=== PATIENT | male | born 1975 | race Caucasian/White ===

== ENCOUNTER 2020-02-08 12:04 | Emergency (ER) | payer SELFPAY ==
--- NOTE | 2020-02-08 12:50 | RAD REPORT ---
EXAM DESCRIPTION: CT - Head Brain Wo Cont - 02/08/2020 12:38 pm CLINICAL HISTORY: HEADACHE COMPARISON: No comparisons TECHNIQUE: Axial 5 mm thick images of the head were obtained without IV contrast. All CT scans are performed using dose optimization technique as appropriate and may include automated exposure control or mA/KV adjustment according to patient size. FINDINGS: No intracranial hemorrhage, mass, edema or shift of mid-line structures. No acute infarcti on changes seen. No abnormal extra-axial fluid collections. Ventricles are normal. Mastoid air cells and visualized portions of the paranasal sinuses are clear. No acute bony findings. IMPRESSION: Negative non-contrast CT head examination.
[2020-02-08] MEDS ORDERED: NA CHLORIDE 0.9% 1,000 ML ONE (13:13)
[2020-02-08 13:18] LABS: Absolute Lymphocytes (CBC) 1.1 K/uL (0.7-4.9); Basophils % 0.2 % (0-1.3); Hematocrit 39.9 % (39.6-49.0); Lymphocytes % 20.3 % (15.3-44.8); MPV 9.4 fL (7.6-11.3); RBC Red Blood Cell Count 3.73 M/uL (4.33-5.43)
[2020-02-08 13:22] LABS: Protime INR 0.95
--- NOTE | 2020-02-08 13:23 | RAD REPORT ---
EXAM DESCRIPTION: RAD - Chest Single View - 02/08/2020 12:41 pm CLINICAL HISTORY: PALPITATIONS COMPARISON: None TECHNIQUE: AP portable chest image was obtained 02/08/2020 12:41 pm . FINDINGS: Lungs are clear. Heart and vasculature are normal. No measurable pleural effusion and no p neumothorax. No acute bony abnormality seen. No acute aortic findings suspected. IMPRESSION: No acute cardiopulmonary process.
[2020-02-08] MEDS ORDERED: METOCLOPRAMIDE 10 MG/2mL INJ ONE (13:26)
[2020-02-08] MEDS ORDERED: NA CHLORIDE 0.9% 100 ML IV ONE (13:26)
[2020-02-08] MEDS ORDERED: DIPHENHYDRAMINE 50 MG/ML VIAL ONE (13:26)
[2020-02-08 13:36] LABS: Albumin 3.1 g/dL (3.4-5.0); Alkaline Phosphatase 170 U/L (45-117); BUN Blood Urea Nitrogen 1 mg/dL (7-18); Bicarbonate 26 mmol/L (21-32); Bilirubin Direct 0.3 mg/dL (0-0.2); Bilirubin Total 0.5 mg/dL (0.2-1.0); Glucose Level 81 mg/dL (74-106); Magnesium 2.3 mg/dL (1.8-2.4); NT PRO-BNP 53 pg/mL (<125); Potassium 3.4 mmol/L (3.5-5.1); Protein, Total 6.8 g/dL (6.4-8.2); Sodium Level 141 mmol/L (136-145); Troponin (Emerg Dept Use Only) < 0.02 ng/mL (0.0-0.045)
[2020-02-08 13:38] LABS: ALT/SGPT 584 U/L (12-78); AST/SGOT 741 U/L (15-37)
[2020-02-08 14:56] LABS: Blood Morphology Comment NOTED (NOT SEEN); Platelet Estimate ADEQ; White Blood Cell Scan OK (OK)
[2020-02-08 14:57] LABS: Anisocytosis 2+; Macrocytosis 2+
--- NOTE | 2020-02-08 15:38 | RAD REPORT ---
EXAM DESCRIPTION: CT - Abdomen Pelvis W Contrast - 02/08/2020 3:12 pm CLINICAL HISTORY: Abnormal liver enzymes COMPARISON: No comparisons TECHNIQUE: Biphasic, helical CT imaging of the abdomen and pelvis was performed following 100 ml non -ionic IV contrast. No oral contrast administered. All CT scans are performed using dose optimization technique as appropriate and may include automated exposure control or mA/KV adjustment according to patient size. FINDINGS: No suspicious findings in the lung bases. Bilateral breast implants in place. No pericardi al thickening or effusion. Liver is borderline to mild fatty infiltrated with no focal lesion. Spleen and pancreas show no acute findings. Gallbladder is partially contracted. Gallstones can be occult. No biliary tree dilatation. Renal function is symmetric and does not appear to be delayed. No pyelonephritis or acute renal paren chymal process. Cortical thinning is seen in areas of the right kidney possibly from old infectious o r inflammatory processes. Right collecting system is mildly dilated but there are no obstructing or n onobstructing calculi seen. No bladder abnormalities. No adrenal abnormalities. Uterus, ovaries and a dnexa show no suspicious findings. There are small cysts present. No dilated bowel loops or bowel wall thickening. Contrast material is present in a nondilated appendi x presumed to be from prior imaging study. Multiple appendicoliths would be possible. Active appendix process is not suspected. No free air, free fluid or inflammatory stranding. No hernia, mass or bul ky lymphadenopathy. No suspicious bony findings. IMPRESSION: As detailed above, no acute or emergent CT abdomen or pelvis finding.
--- NOTE | 2020-02-08 15:58 | EDPHYS ---
Physician Documentation [facility] Name: Jennifer Musa Age: 45 yrs Sex: Male : 1975 Arrival Date: 02/08/2020 Time: 12:06 Bed 20 Private MD: ED Physician Donny Adair HPI: 02/07 12:18 This 45 yrs old Male presents to ER via Ambulatory with complaints of High pm1 Blood Pressure, Headache. 12:18 The patient has elevated blood pressure and discovered this at home, with a home pm1 device. Onset: The symptoms/episode began/occurred 5 day(s) ago. Modifying factors: The symptoms are alleviated by. Modifying factors: The symptoms are aggravated by Nothing, The symptoms are alleviated by Nothing. Associated signs and symptoms: Pertinent negatives: chest pain, nausea, vomiting, shortness of breath. Severity of symptoms: in the emergency department the blood pressure is unchanged. The patient has not experienced similar symptoms in the past. The patient has not recently seen a physician, has an appointment scheduled, next week. Historical: - Allergies: 12:12 Aspirin; ll1 - PMHx: 12:12 hypertension-no medications; ll1 - PSHx: 12:12 meniscus/ACL repair; Hysterectomy; Hernia repair; ll1 - Immunization history:: Flu vaccine is not up to date. - Social history:: Smoking status: Patient reports the use of cigarette tobacco products, smokes one-half pack cigarettes per day, Patient/guardian denies using alcohol, street drugs. ROS: 12:18 Constitutional: Negative for fever, chills, and weight loss, Eyes: Negative for injury, pm1 pain, redness, and discharge, ENT: Negative for injury, pain, and discharge, Neck: Negative for injury, pain, and swelling. 12:18 Respiratory: Negative for shortness of breath, cough, wheezing, and pleuritic chest pain, Abdomen/GI: Negative for abdominal pain, nausea, vomiting, diarrhea, and constipation, Back: Negative for injury and pain, MS/Extremity: Negative for injury and deformity, Skin: Negative for injury, rash, and discoloration. 12:18 Cardiovascular: Positive for palpitations, Negative for chest pain, edema. 12:18 Neuro: Positive for headache, Negative for numbness, weakness. Exam: 12:18 Constitutional: This is a well developed, well nourished patient who is awake, alert, pm1 and in no acute distress. Head/Face: Normocephalic, atraumatic. Chest/axilla: Normal chest wall appearance and motion. Nontender with no deformity. No lesions are appreciated. Cardiovascular: Regular rate and rhythm with a normal S1 and S2. No gallops, murmurs, or rubs. Normal PMI, no JVD. No pulse deficits. Respiratory: Lungs have equal breath sounds bilaterally, clear to auscultation and percussion. No rales, rhonchi or wheezes noted. No increased work of breathing, no retractions or nasal flaring. Abdomen/GI: Soft, non-tender, with normal bowel sounds. No distension or tympany. No guarding or rebound. No evidence of tenderness throughout. Back: No spinal tenderness. No costovertebral tenderness. Full range of motion. Skin: Warm, dry with normal turgor. Normal color with no rashes, no lesions, and no evidence of cellulitis. MS/ Extremity: Pulses equal, no cyanosis. Neurovascular intact. Full, normal range of motion. 12:18 Neuro: Exam negative for acute changes, Orientation: is normal, Mentation: is normal, Motor: is normal, moves all fours. Vital Signs: 12:13 BP 164 / 103; Pulse 102; Resp 18; Temp 97.5; Pulse Ox 97% ; Pain 7/10; ll1 13:22 BP 155 / 93; Pulse 87; Resp 14; Pulse Ox 95% on R/A; aj1 14:31 BP 157 / 103; Pulse 91; Resp 18; Pulse Ox 99% on R/A; aj1 15:33 BP 148 / 99; Pulse 93; Resp 18; Pulse Ox 97% on R/A; aj1 MDM: 12:14 Patient medically screened. pm1 14:16 ED course: Patient would like CT scan of abdomen due to elevated liver enzymes instead pm1 of follow up with PCP. 14:16 ED course: Patient reports history of alcoholism. pm1 15:57 Data reviewed: vital signs. Data interpreted: Pulse oximetry: on room air is 97 %. pm1 Interpretation: normal. Counseling: I had a detailed discussion with the patient and/or guardian regarding: the historical points, exam findings, and any diagnostic results supporting the discharge/admit diagnosis, lab results, radiology results, the need for outpatient follow up, a stripper black and white, to return to the emergency department if symptoms worsen or persist or if there are any questions or concerns that arise at home. 02/07 12:18 Order name: Basic Metabolic Panel; Complete Time: 13:55 pm1 02/07 12:18 Order name: CBC with Diff; Complete Time: 15:02 pm1 02/07 12:18 Order name: LFT's; Complete Time: 13:55 pm1 02/07 12:18 Order name: Magnesium; Complete Time: 13:55 pm1 02/07 12:18 Order name: NT PRO-BNP; Complete Time: 13:55 pm1 02/07 12:18 Order name: PT-INR; Complete Time: 13:55 pm1 02/07 12:18 Order name: CT Head Brain wo Cont; Complete Time: 12:52 pm1 02/07 12:18 Order name: Troponin (emerg Dept Use Only); Complete Time: 13:55 pm1 02/07 12:18 Order name: XRAY Chest (1 view); Complete Time: 13:24 pm1 02/07 14:16 Order name: CT Abd/Pelvis - IV Contrast Only; Complete Time: 15:56 pm1 02/07 14:24 Order name: CBC Smear Scan; Complete Time: 15:02 EDMS 02/07 12:18 Order name: EKG; Complete Time: 12:19 pm1 02/07 12:18 Order name: Cardiac monitoring; Complete Time: 12:55 pm1 02/07 12:18 Order name: EKG - Nurse/Tech; Complete Time: 12:55 pm1 02/07 12:18 Order name: IV Saline Lock; Complete Time: 13:04 pm02/07 12:18 Order name: Labs collected and sent; Complete Time: 13:04 pm02/07 12:18 Order name: O2 Per Protocol; Complete Time: 12:55 pm1 02/07 12:18 Order name: O2 Sat Monitoring; Complete Time: 12:55 pm1 Administered Medications: 13:03 Drug: NS 0.9% 1000 ml Route: IV; Rate: 1000 ml; Site: right antecubital; aj1 16:19 Follow up: IV Status: Completed infusion; IV Intake: 1000ml aj 13:21 Drug: Reglan 10 mg Route: IVP; Site: right antecubital; aj1 16:19 Follow up: Response: No adverse reaction aj1 13:22 Drug: Benadryl 25 mg Route: IVP; Site: right antecubital; aj1 16:19 Follow up: Response: No adverse reaction aj1 Disposition: 02/08/20 15:58 Discharged to Home. Impression: Headache, Essential (primary) hypertension. - Condition is Stable. - Discharge Instructions: General Headache Without Cause, Hypertension, How to Take Your Blood Pressure, [id number], DASH Eating Plan, Managing Your Hypertension. - Prescriptions for Lisinopril 10 mg Oral Tablet - take 1 tablet by ORAL route once daily; 20 tablet. - Medication Reconciliation Form, Thank You Letter, Antibiotic Education, Prescription Opioid Use form. - Follow up: Emergency Department; When: As needed; Reason: Worsening of condition. Follow up: Private Physician; When: 2 - 3 days; Reason: Recheck today's complaints, Continuance of care, Re-evaluation by your physician. - Problem is new. - Symptoms have improved. Addendum: 02/10/2020 10:50 Co-signature as Attending Physician, Donny Adair MD I agree with the assessment and c gambino plan of care. Signatures: Dispatcher [employer] EDRadha Gray RN RN aj1 Donny Adair MD MD cha Marinas, Patrick, LEE [employer]GE[employer] pm1 Denise Smyth RN RN ll1 Corrections: (The following items were deleted from the chart) 02/07 16:19 15:58 02/08/2020 15:58 Discharged to Home. Impression: Headache; Essential (primary) aj1 hypertension. Condition is Stable. Forms are Medication Reconciliation Form, Thank You Letter, Antibiotic Education, Prescription Opioid Use. Follow up: Emergency Department; When: As needed; Reason: Worsening of condition. Follow up: Private Physician; When: 2 - 3 days; Reason: Recheck today's complaints, Continuance of care, Re-evaluation by your physician. Problem is new. Symptoms have improved. pm1
--- NOTE | 2020-02-08 15:58 | ER ---
Nurse's Notes [facility] Name: Jennifer Musa Age: 45 yrs Sex: Male : 1975 Arrival Date: 02/08/2020 Time: 12:06 Bed 20 Private MD: Diagnosis: Headache;Essential (primary) hypertension Presentation: 02/07 12:13 Chief complaint: Patient states: [place] for 5 days with N/V. Bp elevated at home, 171/122. ll1 No fever or cough. Coronavirus screen: Client denies travel out of the [place] in the last 14 days. At this time, the client does not indicate any symptoms associated with coronavirus-19. Ebola Screen: Patient denies travel to an Ebola-affected area in the 21 days before illness onset. Initial Sepsis Screen: Does the patient meet any 2 criteria? HR > 90 bpm. Risk Assessment: Do you want to hurt yourself or someone else? Patient reports no desire to harm self or others. Onset of symptoms was February 04, 2020. 12:13 Method Of Arrival: Ambulatory ll1 12:13 Acuity: DAI 3 ll1 Triage Assessment: 12:59 General: Appears in no apparent distress. uncomfortable. Pain: Also complains of no aj1 other associated symptoms. Historical: - Allergies: 12:12 Aspirin; ll1 - PMHx: 12:12 hypertension-no medications; ll1 - PSHx: 12:12 meniscus/ACL repair; Hysterectomy; Hernia repair; ll1 - Immunization history:: Flu vaccine is not up to date. - Social history:: Smoking status: Patient reports the use of cigarette tobacco products, smokes one-half pack cigarettes per day, Patient/guardian denies using alcohol, street drugs. Screenin:56 Abuse screen: Denies threats or abuse. Denies injuries from another. Nutritional aj1 screening: No deficits noted. Tuberculosis screening: No symptoms or risk factors identified. 16:18 Fall Risk None identified. aj1 Assessment: 12:34 Reassessment: Patient transported to [place] via wheelchair. aj1 12:56 General: Appears in no apparent distress. uncomfortable, Behavior is calm, cooperative, aj1 appropriate for age. Pain: Complains of pain in forehead, right eye, right methodist and right base of the skull Pain does not radiate. Pain currently is 7 out of 10 on a pain scale. Quality of pain is described as aching, Pain began 5 days ago Is continuous. Neuro: Level of Consciousness is awake, alert, obeys commands, Oriented to person, place, time, situation, Plastic Welder are equal bilaterally Moves all extremities. Full function Speech is normal, Facial symmetry appears normal, Reports headache. Cardiovascular: Reports palpitations, Denies chest pain, Heart tones S1 S2 present Patient's skin is warm and dry. Rhythm is sinus rhythm Chest pain is denied. Respiratory: Airway is patent Respiratory effort is even, unlabored, Respiratory pattern is regular, symmetrical, Denies cough, shortness of breath. GI: No signs and/or symptoms were reported involving the gastrointestinal system. : No signs and/or symptoms were reported regarding the genitourinary system. EENT: No signs and/or symptoms were reported regarding the EENT system. Denies nasal congestion, nasal discharge. Derm: No signs and/or symptoms reported regarding the dermatologic system. Skin is pink, warm \T\ dry. normal. Musculoskeletal: No signs and/or symptoms reported regarding the musculoskeletal system. Circulation, motion, and sensation intact. 14:05 Reassessment: Jacques Tejeda NP at bedside. aj1 14:26 Reassessment: Patient appears in no apparent distress at this time. No changes from aj1 previously documented assessment. Patient and/or family updated on plan of care and expected duration. Pain level reassessed. Patient is alert, oriented x 3, equal unlabored respirations, skin warm/dry/pink. 15:30 Reassessment: Patient appears in no apparent distress at this time. No changes from aj1 previously documented assessment. Patient and/or family updated on plan of care and expected duration. Pain level reassessed. Patient is alert, oriented x 3, equal unlabored respirations, skin warm/dry/pink. 16:18 Reassessment: Patient appears in no apparent distress at this time. No changes from aj1 previously documented assessment. Patient and/or family updated on plan of care and expected duration. Pain level reassessed. Patient is alert, oriented x 3, equal unlabored respirations, skin warm/dry/pink. Vital Signs: 12:13 BP 164 / 103; Pulse 102; Resp 18; Temp 97.5; Pulse Ox 97% ; Pain 7/10; ll1 13:22 BP 155 / 93; Pulse 87; Resp 14; Pulse Ox 95% on R/A; aj1 14:31 BP 157 / 103; Pulse 91; Resp 18; Pulse Ox 99% on R/A; aj1 15:33 BP 148 / 99; Pulse 93; Resp 18; Pulse Ox 97% on R/A; aj1 ED Course: 12:06 Patient arrived in ED. mr 12:13 Arm band placed on Patient placed in an exam room, on a stretcher. ll1 12:14 Triage completed. ll1 12:14 Maco Tejeda, LEE is PHCP. pm1 12:14 Donny Adair MD is Attending Physician. pm1 12:34 Radha Urban, SHIRIN is Primary Nurse. aj1 12:38 CT Head Brain wo Cont In Process Unspecified. EDMS 12:41 XRAY Chest (1 view) In Process Unspecified. EDMS 12:56 Patient has correct armband on for positive identification. Bed in low position. Call aj1 light in reach. Side rails up X 1. 12:56 No provider procedures requiring assistance completed. aj1 13:00 Inserted saline lock: 20 gauge in right antecubital area, using aseptic technique. aj1 Blood collected. 15:12 CT Abd/Pelvis - IV Contrast Only In Process Unspecified. EDMS 16:18 IV discontinued, intact, bleeding controlled, No redness/swelling at site. Pressure aj1 dressing applied. Administered Medications: 13:03 Drug: NS 0.9% 1000 ml Route: IV; Rate: 1000 ml; Site: right antecubital; aj1 16:19 Follow up: IV Status: Completed infusion; IV Intake: 1000ml aj1 13:21 Drug: Reglan 10 mg Route: IVP; Site: right antecubital; aj1 16:19 Follow up: Response: No adverse reaction aj1 13:22 Drug: Benadryl 25 mg Route: IVP; Site: right antecubital; aj1 16:19 Follow up: Response: No adverse reaction aj1 Intake: 16:19 IV: 1000ml; Total: 1000ml. aj1 Outcome: 15:58 Discharge ordered by MD. pm1 16:18 Discharged to home ambulatory. aj1 16:18 Condition: good 16:18 Discharge instructions given to patient, Instructed on discharge instructions, follow up and referral plans. medication usage, Demonstrated understanding of instructions, follow-up care, medications, Prescriptions given X 1. 16:19 Patient left the ED. aj1 Signatures: Dispatcher [employer] EDRadha Gray RN RN aj1 Sara Varela mr IleanaMaco, NORMALIZER NORMALIZER pm1 Denise Smyth RN RN ll1 Corrections: (The following items were deleted from the chart) 12:59 12:56 GI: No signs and/or symptoms were reported involving the gastrointestinal system. aj1 aj1
[2020-02-08 17:14] VITALS: TEMP 97.5
[2020-02-08 17:17] VITALS: BP 148/99; O2SAT 97
--- NOTE | 2020-02-09 09:45 | EKG ---
Test Date: 2020-02-08 Test Time: 12:49:51 Public Aid Eligibility Assistant: RENAE MEASUREMENT RESULTS: Intervals: Rate: 87 MA: 168 QRSD: 82 QT: 380 QTc: 457 [place]: P: 68 MA: 168 QRS: 89 T: 48 INTERPRETIVE STATEMENTS: Normal sinus rhythm Normal ECG No previous ECG available for comparison Electronically Signed On 02-09-20 09:44:17 CDT by Sage Andrews
== END 2020-02-08 16:19 | disposition home or self-care (01) ==
LOC: ER 12:04
DX: I10 Essential (primary) hypertension (principal); F10.20 Alcohol dependence, uncomplicated; F17.210 Nicotine dependence, cigarettes, uncomplicated; Z88.6 Allergy status to analgesic agent
CPT/HCPCS: 36415; 70450; 71045; 74177; 80048; 80076; 83735; 83880; 84484; 85025; 85610; 93005; 96361; 96374; 96375; 99284; J1200; J2765; J7030; Q9967

== ENCOUNTER 2022-09-30 08:56 | Emergency (ER) | payer SELFPAY ==
--- OUTSIDE RECORDS SUMMARY | 2022-09-30 09:00 | XMS REPORT | Continuity of Care Document ---
:1975 Author Organization [facility] t Address [address] [place] [address]. [address] [place] [address] Care Team Providers Name Role Phone Lilly RUIZ Araceli Primary Care Physician [phone] DARIEN NOVA Attending Clinician Unavailable FABIAN HOOD Attending Clinician Unavailable ELIOT SOLOMON Attending Clinician Unavailable ELIOT SOLOMON Admitting Clinician Unavailable Problems This patient has no known problems. Allergies, Adverse Reactions, Alerts Allergy Allergy Status Severity Reaction(s) Onset Inactive Treating Comm ents Source Name Type Date Date Clinician Mesna - Propensi Active Intraven ty to 6-13 ous adverse 00:00: reaction 00 to drug AMOXICIL DRUG Active Rash 2019- Univers NATHEN-POT 2-21 ity of CLAVULAN 00:00: [place] [facility] 00 [facility] Aspirin Propensi Active 2019-0 ty to 8-12 adverse 00:00: reaction 00 to drug ASPIRIN DRUG Active Other-Cmnt 2018-0 Unive rs INGREDI 7-20 ity of 00:00: [address] Medications Ordered Filled Start Stop Current Ordering Indication Dosage Frequency Signature Comments Components Source Medication Medication Date Date Medication? Clinician (SIG) Name Name Dose 2021- No Unknown 02-16 00:00: 00 Dose 2021-0 No Unknown 02-16 00:00: 00 Dose 2021-0 No Unknown 02-16 00:00: 00 Dose 2021-0 No Unknown 11-25 00:00: 00 Dose 2021-0 No Unknown 11-25 00:00: 00 Dose 2021-0 No Unknown 11-25 00:00: 00 Dose 2021-0 No Unknown 11-25 00:00: 00 Dose 2022-0 No Unknown 6 00:00: 00 Dose 2022-0 No Unknown 11-25 00:00: 00 Dose 2022-0 No Unknown 11-25 00:00: 00 Dose 2022-0 No Unknown 11-25 00:00: 00 Dose 2022-0 No Unknown 11-25 00:00: 00 Dose 2022-0 No Unknown 11-25 00:00: 00 Dose 2022-0 No Unknown 11-25 00:00: 00 Dose 2022-0 No Unknown 11-25 00:00: 00 amoxicillin 2022-0 No 1mg 875 6-13 mg-potassiu 00:00: m 00 clavulanate 125 mg tablet Dose 2022-0 No Unknown 11-08 00:00: 00 Dose 2022-0 No Unknown 11-08 00:00: 00 amoxicillin 2022-0 No 1mg 875 6-13 mg-potassiu 00:00: m 00 clavulanate 125 mg tablet Dose 2022-0 No Unknown 11-08 00:00: 00 Dose 2022-0 No Unknown 11-08 00:00: 00 amoxicillin 2022-0 No 1mg 875 6-13 mg-potassiu 00:00: m 00 clavulanate 125 mg tablet Dose 2022-0 No Unknown 6 00:00: 00 Dose 2022-0 No Unknown 6 00:00: 00 amoxicillin 2022-0 No 1mg 875 6-13 mg-potassiu 00:00: m 00 clavulanate 125 mg tablet ibuprofen 2022-0 No 1mg 800 mg 6-13 tablet 00:00: 00 Dose 2022-0 No Unknown 6 00:00: 00 triamcinolo 2020-1 No 1% ne 1-29 acetonide 00:00: 0.1 % 00 topical cream hydroxyzine 2020-1 No 1mg HCl 25 mg 1-29 tablet 00:00: 00 triamcinolo 2020-1 No 1% ne 1-29 acetonide 00:00: 0.1 % 00 topical cream hydroxyzine 2020-1 No 1mg HCl 25 mg 1-29 tablet 00:00: 00 triamcinolo 2020-1 No 1% ne 1-29 acetonide 00:00: 0.1 % 00 topical cream triamcinolo 2020-1 No 1% ne 1-29 acetonide 00:00: 0.1 % 00 topical cream hydroxyzine 2020-1 No 1mg HCl 25 mg 1-29 tablet 00:00: 00 hydroxyzine 2020-1 No 1mg HCl 25 mg 1-29 tablet 00:00: 00 triamcinolo 2020-1 No 1% ne 1-27 acetonide 00:00: 0.1 % 00 topical cream hydroxyzine 2020-1 No 1mg HCl 25 mg 1-27 tablet 00:00: 00 triamcinolo 2020-1 No 1% ne 1-27 acetonide 00:00: 0.1 % 00 topical cream hydroxyzine 2020-1 No 1mg HCl 25 mg 1-27 tablet 00:00: 00 triamcinolo 2020-1 No 1% ne 1-27 acetonide 00:00: 0.1 % 00 topical cream hydroxyzine 2020-1 No 1mg HCl 25 mg 1-27 tablet 00:00: 00 triamcinolo 2020-1 No 1% ne 1-27 acetonide 00:00: 0.1 % 00 topical cream hydroxyzine 2020-1 No 1mg HCl 25 mg 1-27 tablet 00:00: 00 triamcinolo 1-0 No 1% ne 9-09 acetonide 00:00: 0.1 % 00 topical ointment triamcinolo 1-0 No 1% ne 9-09 acetonide 00:00: 0.1 % 00 topical ointment triamcinolo 1-0 No 1% ne 9-09 acetonide 00:00: 0.1 % 00 topical ointment triamcinolo 2021-0 No 1% ne 9-09 acetonide 00:00: 0.1 % 00 topical ointment permethrin 2021-0 No 1% 5 % topical 8-23 cream 00:00: 00 permethrin 2021-0 No 1% 5 % topical 8-23 cream 00:00: 00 permethrin 2021-0 No 1% 5 % topical 8-23 cream 00:00: 00 permethrin 2021-0 No 1% 5 % topical 8-23 cream 00:00: 00 permethrin 2021-0 No 1% 5 % topical 8-23 cream 00:00: 00 permethrin 2021-0 No 1% 5 % topical 8-23 cream 00:00: 00 permethrin 2021-0 No 1% 5 % topical 8-23 cream 00:00: 00 permethrin 2021-0 No 1% 5 % topical 8-23 cream 00:00: 00 permethrin 2019-1 No 1% 5 % topical 2-03 cream 00:00: 00 permethrin 2020-1 No 1% 5 % topical 2-03 cream 00:00: 00 permethrin 2020-1 No 1% 5 % topical 2-03 cream 00:00: 00 permethrin 2019-1 No 1% 5 % topical 2-03 cream 00:00: 00 chlordiazep 2020-1 No 1mg oxide 25 mg 2-02 capsule 00:00: 00 chlordiazep 2020-1 No 1mg oxide 25 mg 2-02 capsule 00:00: 00 chlordiazep 2019-1 No 1mg oxide 25 mg 2-02 capsule 00:00: 00 chlordiazep 2020-1 No 1mg oxide 25 mg 2-02 capsule 00:00: 00 betamethaso 2020-1 No 1% ne valerate 1-12 0.1 % 00:00: topical 00 cream Zofran 4 mg 2019-1 No 1mg tablet 1-12 00:00: 00 betamethaso 2020-1 No 1% ne valerate 1-12 0.1 % 00:00: topical 00 cream Zofran 4 mg 2019-1 No 1mg tablet 1-12 00:00: 00 betamethaso 2020-1 No 1% ne valerate 1-12 0.1 % 00:00: topical 00 cream Zofran 4 mg 2019-1 No 1mg tablet 1-12 00:00: 00 betamethaso 2020-1 No 1% ne valerate 1-12 0.1 % 00:00: topical 00 cream Zofran 4 mg 2020-1 No 1mg tablet -12 00:00: 00 lisinopril 2020-0 No 1mg 10 mg 9-17 tablet 00:00: 00 lisinopril 2020-0 No 1mg 10 mg 9-17 tablet 00:00: 00 lisinopril 2020-0 No 1mg 10 mg 9-17 tablet 00:00: 00 lisinopril 2020-0 No 1mg 10 mg 9-17 tablet 00:00: 00 disulfiram 2020-0 No 1mg 250 mg 9-01 tablet 00:00: 00 disulfiram 2020-0 No 1mg 250 mg 9-01 tablet 00:00: 00 disulfiram 2020-0 No 1mg 250 mg 9-01 tablet 00:00: 00 disulfiram 2020-0 No 1mg 250 mg 9-01 tablet 00:00: 00 betamethaso 2020-0 No 1% ne valerate 8-19 0.1 % 00:00: topical 00 cream triamcinolo 2020-0 No 1% ne 8-19 acetonide 00:00: 0.1 % 00 topical ointment prednisone 2020-0 No 1mg 20 mg 8-19 tablet 00:00: 00 betamethaso 2020-0 No 1% ne valerate 8-19 0.1 % 00:00: topical 00 cream disulfiram 2020-0 No mg 500 mg 8-19 tablet 00:00: 00 triamcinolo 2020-0 No 1% ne 8-19 acetonide 00:00: 0.1 % 00 topical ointment prednisone 2020-0 No 1mg 20 mg 8-19 tablet 00:00: 00 disulfiram 2020-0 No mg 500 mg 8-19 tablet 00:00: 00 betamethaso 2020-0 No 1% ne valerate 8-19 0.1 % 00:00: topical 00 cream triamcinolo 2020-0 No 1% ne 8-19 acetonide 00:00: 0.1 % 00 topical ointment prednisone 2020-0 No 1mg 20 mg 8-19 tablet 00:00: 00 disulfiram 2020-0 No mg 500 mg 8-19 tablet 00:00: 00 betamethaso 2020-0 No 1% ne valerate 8-19 0.1 % 00:00: topical 00 cream triamcinolo 2020-0 No 1% ne 8-19 acetonide 00:00: 0.1 % 00 topical ointment prednisone 2020-0 No 1mg 20 mg 8-19 tablet 00:00: 00 disulfiram 2020-0 No mg 500 mg 8-19 tablet 00:00: 00 nystatin-tr 2020-0 No 1unit/g iamcinolone 8-12 -% 100,000 00:00: unit/g-0.1 00 % topical cream citalopram 2020-0 No 1mg 20 mg 8-12 tablet 00:00: 00 citalopram 2020-0 No 1mg 20 mg 8-12 tablet 00:00: 00 hydroxyzine 2020-0 No 1mg HCl 50 mg 8-12 tablet 00:00: 00 hydroxyzine 2020-0 No 1mg HCl 50 mg 8-12 tablet 00:00: 00 nystatin-tr 2020-0 No 1unit/g iamcinolone 8-12 -% 100,000 00:00: unit/g-0.1 00 % topical cream citalopram 2020-0 No 1mg 20 mg 8-12 tablet 00:00: 00 citalopram 2020-0 No 1mg 20 mg 8-12 tablet 00:00: 00 hydroxyzine 2020-0 No 1mg HCl 50 mg 8-12 tablet 00:00: 00 hydroxyzine 2020-0 No 1mg HCl 50 mg 8-12 tablet 00:00: 00 nystatin-tr 2020-0 No 1unit/g iamcinolone 8-12 -% 100,000 00:00: unit/g-0.1 00 % topical cream citalopram 2020-0 No 1mg 20 mg 8-12 tablet 00:00: 00 citalopram 2020-0 No 1mg 20 mg 8-12 tablet 00:00: 00 hydroxyzine 2020-0 No 1mg HCl 50 mg 8-12 tablet 00:00: 00 hydroxyzine 2020-0 No 1mg HCl 50 mg 8-12 tablet 00:00: 00 nystatin-tr 2020-0 No 1unit/g iamcinolone 8-12 -% 100,000 00:00: unit/g-0.1 00 % topical cream citalopram 2020-0 No 1mg 20 mg 8-12 tablet 00:00: 00 citalopram 2020-0 No 1mg 20 mg 8-12 tablet 00:00: 00 hydroxyzine 2020-0 No 1mg HCl 50 mg 8-12 tablet 00:00: 00 hydroxyzine 2020-0 No 1mg HCl 50 mg 8-12 tablet 00:00: 00 Immunizations Ordered Immunization Filled Immunization Date Status Commen ts Source Name Name Tdap 2021-04-24 Completed 00:00:00 Tdap 2021-04-24 Completed 00:00:00 Tdap 2021-04-24 Completed 00:00:00 Tdap 2021-04-24 Completed 00:00:00 Vital Signs Vital Name Observation Time Observation Value Comments Source BP Systolic 2022-03-24 09:12:00 138 mm[Hg] BP Diastolic 2022-03-24 09:12:00 92 mm[Hg] Weight Measured 2022-03-24 09:12:00 149.80 pounds Height Measured 2022-03-24 09:12:00 63.00 inches Body Temperature 2022-03-24 09:12:00 98.60 degrees Heart Rate 2022-03-24 09:12:00 104.00 /min Respiratory Rate 2022-03-24 09:12:00 18.00 /min BP Systolic 2022-02-28 11:29:00 146 mm[Hg] BP Diastolic 2022-02-28 11:29:00 104 mm[Hg] Weight Measured 2022-02-28 11:29:00 150.40 pounds Height Measured 2022-02-28 11:29:00 63.00 inches Body Temperature 2022-02-28 11:29:00 98.10 degrees Heart Rate 2022-02-28 11:29:00 115.00 /min Respiratory Rate 2022-02-28 11:29:00 18.00 /min BP Systolic 2021-11-25 15:04:00 159 mm[Hg] BP Diastolic 2021-11-25 15:04:00 106 mm[Hg] Weight Measured 2021-11-25 15:04:00 147.00 pounds Height Measured 2021-11-25 15:04:00 63.00 inches Body Temperature 2021-11-25 15:04:00 97.90 degrees Heart Rate 2021-11-25 15:04:00 104.00 /min Respiratory Rate 2021-11-25 15:04:00 16.00 /min BP Systolic 2021-11-08 13:53:00 142 mm[Hg] BP Diastolic 2021-11-08 13:53:00 99 mm[Hg] Weight Measured 2021-11-08 13:53:00 144.60 pounds Height Measured 2021-11-08 13:53:00 63.00 inches Body Temperature 2021-11-08 13:53:00 97.80 degrees Heart Rate 2021-11-08 13:53:00 104.00 /min Respiratory Rate 2021-11-08 13:53:00 BP Systolic 2021-05-11 10:47:00 140 mm[Hg] BP Diastolic 2021-05-11 10:47:00 96 mm[Hg] Weight Measured 2021-05-11 10:47:00 142.00 pounds Height Measured 2021-05-11 10:47:00 63.00 inches Body Temperature 2021-05-11 10:47:00 97.40 degrees Heart Rate 2021-05-11 10:47:00 106.00 /min Respiratory Rate 2021-05-11 10:47:00 16.00 /min BP Systolic 2021-04-24 09:47:00 138 mm[Hg] BP Diastolic 2021-04-24 09:47:00 91 mm[Hg] Weight Measured 2021-04-24 09:47:00 146.80 pounds Height Measured 2021-04-24 09:47:00 64.00 inches Body Temperature 2021-04-24 09:47:00 98.30 degrees Heart Rate 2021-04-24 09:47:00 100.00 /min Respiratory Rate 2021-04-24 09:47:00 BP Systolic 2021-01-18 11:10:00 131 mm[Hg] BP Diastolic 2021-01-18 11:10:00 89 mm[Hg] Weight Measured 2021-01-18 11:10:00 144.40 pounds Height Measured 2021-01-18 11:10:00 64.00 inches Body Temperature 2021-01-18 11:10:00 98.40 degrees Heart Rate 2021-01-18 11:10:00 113.00 /min Respiratory Rate 2021-01-18 11:10:00 BP Systolic 2020-04-29 14:15:00 127 mm[Hg] BP Diastolic 2020-04-29 14:15:00 95 mm[Hg] Weight Measured 2020-04-29 14:15:00 Height Measured 2020-04-29 14:15:00 Body Temperature 2020-04-29 14:15:00 97.30 degrees Heart Rate 2020-04-29 14:15:00 112.00 /min Respiratory Rate 2020-04-29 14:15:00 16.00 /min BP Systolic 2020-04-29 12:51:00 BP Diastolic 2020-04-29 12:51:00 Weight Measured 2020-04-29 12:51:00 145.00 pounds Height Measured 2020-04-29 12:51:00 64.00 inches Body Temperature 2020-04-29 12:51:00 97.30 degrees Heart Rate 2020-04-29 12:51:00 Respiratory Rate 2020-04-29 12:51:00 BP Systolic 2020-04-09 11:25:00 103 mm[Hg] BP Diastolic 2020-04-09 11:25:00 69 mm[Hg] Weight Measured 2020-04-09 11:25:00 149.80 pounds Height Measured 2020-04-09 11:25:00 63.00 inches Body Temperature 2020-04-09 11:25:00 98.60 degrees Heart Rate 2020-04-09 11:25:00 103.00 /min Respiratory Rate 2020-04-09 11:25:00 16.00 /min BP Systolic 2020-02-13 17:21:00 128 mm[Hg] BP Diastolic 2020-02-13 17:21:00 85 mm[Hg] Weight Measured 2020-02-13 17:21:00 153.00 pounds Height Measured 2020-02-13 17:21:00 63.00 inches Body Temperature 2020-02-13 17:21:00 97.80 degrees Heart Rate 2020-02-13 17:21:00 111.00 /min Respiratory Rate 2020-02-13 17:21:00 17.00 /min BP Diastolic 2020-02-04 09:24:00 133 mm[Hg] Weight Measured 2020-02-04 09:24:00 Height Measured 2020-02-04 09:24:00 Body Temperature 2020-02-04 09:24:00 Heart Rate 2020-02-04 09:24:00 Respiratory Rate 2020-02-04 09:24:00 BP Systolic 2020-02-04 09:24:00 182 mm[Hg] Procedures This patient has no known procedures. Plan of Care Planned Activity Planned Date Details Comments Source Goal Plan of Care Note [code = 65351-9] Goal Plan of Care Note [code = 63449-5] Goal Plan of Care Note [code = 54769-8] Goal Plan of Care Note [code = 24483-3] Goal Plan of Care Note [code = 56819-9] Goal Plan of Care Note [code = 76906-3] Goal Plan of Care Note [code = 22927-1] Goal Plan of Care Note [code = 53870-7] Goal Plan of Care Note [code = 92812-9] Goal Plan of Care Note [code = 91510-7] Goal Plan of Care Note [code = 15696-7] Goal Plan of Care Note [code = 26406-5] Goal Plan of Care Note [code = 86117-4] Goal Plan of Care Note [code = 52700-4] Goal Plan of Care Note [code = 00850-0] Goal Plan of Care Note [code = 43095-7] Goal Plan of Care Note [code = 61712-9] Goal Plan of Care Note [code = 55205-0] Goal Plan of Care Note [code = 98364-7] Goal Plan of Care Note [code = 70882-3] Goal Plan of Care Note [code = 67331-6] Goal Plan of Care Note [code = 25969-4] Goal Plan of Care Note [code = 49788-4] Goal Plan of Care Note [code = 18781-0] Goal Plan of Care Note [code = 12361-1] Goal Plan of Care Note [code = 75335-4] Goal Plan of Care Note [code = 42826-5] Goal Plan of Care Note [code = 68882-7] Goal Plan of Care Note [code = 01329-3] Goal Plan of Care Note [code = 87038-4] Goal Plan of Care Note [code = 14220-2] Goal Plan of Care Note [code = 63804-1] Goal Plan of Care Note [code = 71134-4] Goal Plan of Care Note [code = 84470-4] Goal Plan of Care Note [code = 68966-4] Goal Plan of Care Note [code = 49324-9] Goal Plan of Care Note [code = 28944-4] Goal Plan of Care Note [code = 54398-6] Goal Plan of Care Note [code = 23659-8] Goal Plan of Care Note [code = 72920-9] Goal Plan of Care Note [code = 87584-0] Goal Plan of Care Note [code = 19643-0] Goal Plan of Care Note [code = 59262-2] Goal Plan of Care Note [code = 13725-9] Goal Plan of Care Note [code = 16416-8] Goal Plan of Care Note [code = 95994-2] Goal Plan of Care Note [code = 27248-1] Goal Plan of Care Note [code = 21700-1] Goal Plan of Care Note [code = 90415-7] Goal Plan of Care Note [code = 68974-0] Goal Plan of Care Note [code = 94704-6] Goal Plan of Care Note [code = 04286-5] Goal Plan of Care Note [code = 54127-6] Goal Plan of Care Note [code = 87658-0] Goal Plan of Care Note [code = 60964-9] Goal Plan of Care Note [code = 91076-7] Goal Plan of Care Note [code = 22126-6] Goal Plan of Care Note [code = 55417-1] Goal Plan of Care Note [code = 28580-8] Goal Plan of Care Note [code = 89452-0] Goal Plan of Care Note [code = 51681-6] Goal Plan of Care Note [code = 26110-0] Goal Plan of Care Note [code = 11997-7] Goal Plan of Care Note [code = 57471-8] Goal Plan of Care Note [code = 15225-5] Goal Plan of Care Note [code = 99298-0] Goal Plan of Care Note [code = 44649-0] Encounters Start End Encounter Admission Attending Care Care Encounter Source Date/Time Date/Time Type Type Clinicians Facility Department ID 2022-04-04 2022-04-04 Outpatient [facility] [id number] Vinny 13:26:14 13:26:14 1107 F Jose 2022-03-24 2022-03-24 Outpatient [facility] [id number] Vinny 09:07:52 09:07:52 1027 F Jose 2022-03-24 2022-03-24 Outpatient [id number] 00:00:00 00:00:00 Visit [id number]-g -v77u-si8 60f-fe91a8 [id number] 39cf4c 2022-03-04 2022-03-04 Outpatient [id number] 00:00:00 00:00:00 Visit [id number] [id number]-b -o047-3bd [id number] 2022-02-28 2022-02-28 Outpatient SFA SFA [id number] Vinny 11:14:39 11:14:39 1003 F Jose 2022-02-28 2022-02-28 Outpatient [id number] 00:00:00 00:00:00 Visit [id number]-4957-a -i057-o3s 440-[id number] [id number] f498c5 2021-11-25 2021-11-25 Outpatient [id number] 00:00:00 00:00:00 Visit [id number] [id number]-[id number] -e02k-0m3 [id number] 9531-01-05 2020-06-02 [facility] [id number] [facility] 14:15:00 14:15:00 [facility] 2020-05-18 2020-05-18 Outpatient [facility] [id number] Univers 11:30:00 11:30:00 FABIAN [facility] 2020-05-12 2020-05-12 [facility] [id number] Univers 15:00:00 15:00:00 [facility] 2020-05-04 2020-05-06 Inpatient X [facility] [id number] Univers 21:07:00 15:17:00 ELIOT [facility] Results Test Description Test Time Test Comments Results Result Comments Source COMPREHENSIVE METABOLIC PANEL 2020-04-10 00:00:00 Test Item Value Reference Range Interpretation Comme nts GLUCOSE (test code = 2217) 79 MG/DL BUN (test code = 2208) 6 MG/DL CREATININE (test code = 2214) 0.57 MG/DL eGFR AMER. (test code = 31001) 128 ML/MIN/1.73 eGFR NON- AMER. (test code = 99346) 110 ML/MIN/1.73 CALC BUN/CREAT (test code = 2235) 11 RATIO SODIUM (test code = 2231) 139 MEQ/L POTASSIUM (test code = 2228) 5.2 MEQ/L CHLORIDE (test code = 2215) 96 MEQ/L CARBON DIOXIDE (test code = 2206) 23 MEQ/L CALCIUM (test code = 2209) 9.4 MG/DL PROTEIN, TOTAL (test code = 2229) 8.0 G/DL ALBUMIN (test code = 2201) 5.1 G/DL CALC GLOBULIN (test code = 2240) 2.9 G/DL CALC A/G RATIO (test code = 2234) 1.8 RATIO BILIRUBIN, TOTAL (test code = 2207) 0.5 MG/DL ALKALINE PHOSPHATASE (test code = 2204) 75 U/L AST (test code = 2218) 180 U/L ALT (test code = 2219) 60 U/L COMPREHENSIVE METABOLIC [id number] 00:00:00 Test Item Value Reference Range Interpretation Comments GLUCOSE (test code = 2217) 79 MG/DL BUN (test code = 2208) 6 MG/DL CREATININE (test code = 2214) 0.57 MG/DL eGFR AMER. (test code 128 ML/MIN/1.73 = 44207) eGFR NON- AMER. (test 110 ML/MIN/1.73 code = 64058) CALC BUN/CREAT (test code = 11 RATIO 2235) SODIUM (test code = 2231) 139 MEQ/L POTASSIUM (test code = 2228) 5.2 MEQ/L CHLORIDE (test code = 2215) 96 MEQ/L CARBON DIOXIDE (test code = 23 MEQ/L 2206) CALCIUM (test code = 2209) 9.4 MG/DL PROTEIN, TOTAL (test code = 8.0 G/DL 2229) ALBUMIN (test code = 2201) 5.1 G/DL CALC GLOBULIN (test code = 2.9 G/DL 2240) CALC A/G RATIO (test code = 1.8 RATIO 2234) BILIRUBIN, TOTAL (test code = 0.5 MG/DL 2206) ALKALINE PHOSPHATASE (test 75 U/L code = 2204) AST (test code = 2218) 180 U/L ALT (test code = 2219) 60 U/L COMPREHENSIVE METABOLIC [id number] 00:00:00 Test Item Value Reference Range Interpretation Comments GLUCOSE (test code = 2217) 79 MG/DL BUN (test code = 2208) 6 MG/DL CREATININE (test code = 2214) 0.57 MG/DL eGFR AMER. (test code 128 ML/MIN/1.73 = 38488) eGFR NON- AMER. (test 110 ML/MIN/1.73 code = 57909) CALC BUN/CREAT (test code = 11 RATIO 2235) SODIUM (test code = 2231) 139 MEQ/L POTASSIUM (test code = 2228) 5.2 MEQ/L CHLORIDE (test code = 2215) 96 MEQ/L CARBON DIOXIDE (test code = 23 MEQ/L 2205) CALCIUM (test code = 2209) 9.4 MG/DL PROTEIN, TOTAL (test code = 8.0 G/DL 2228) ALBUMIN (test code = 2201) 5.1 G/DL CALC GLOBULIN (test code = 2.9 G/DL 2239) CALC A/G RATIO (test code = 1.8 RATIO 2233) BILIRUBIN, TOTAL (test code = 0.5 MG/DL 2206) ALKALINE PHOSPHATASE (test 75 U/L code = 2204) AST (test code = 2218) 180 U/L ALT (test code = 2219) 60 U/L COMPREHENSIVE METABOLIC [id number] 00:00:00 Test Item Value Reference Range Interpretation Comments GLUCOSE (test code = 2217) 79 MG/DL BUN (test code = 2208) 6 MG/DL CREATININE (test code = 2214) 0.57 MG/DL eGFR AMER. (test code 128 ML/MIN/1.73 = 33869) eGFR NON- AMER. (test 110 ML/MIN/1.73 code = 88337) CALC BUN/CREAT (test code = 11 RATIO 2235) SODIUM (test code = 2231) 139 MEQ/L POTASSIUM (test code = 2228) 5.2 MEQ/L CHLORIDE (test code = 2215) 96 MEQ/L CARBON DIOXIDE (test code = 23 MEQ/L 220) CALCIUM (test code = 2209) 9.4 MG/DL PROTEIN, TOTAL (test code = 8.0 G/DL 2229) ALBUMIN (test code = 2201) 5.1 G/DL CALC GLOBULIN (test code = 2.9 G/DL 2240) CALC A/G RATIO (test code = 1.8 RATIO 2234) BILIRUBIN, TOTAL (test code = 0.5 MG/DL 220) ALKALINE PHOSPHATASE (test 75 U/L code = 2204) AST (test code = 2218) 180 U/L ALT (test code = 2219) 60 U/L COMPREHENSIVE METABOLIC [id number] 00:00:00 Test Item Value Reference Range Interpretation Comments GLUCOSE (test code = 2217) 79 MG/DL BUN (test code = 2208) 6 MG/DL CREATININE (test code = 2214) 0.57 MG/DL eGFR AMER. (test code 128 ML/MIN/1.73 = 64496) eGFR NON- AMER. (test 110 ML/MIN/1.73 code = 11424) CALC BUN/CREAT (test code = 11 RATIO 2235) SODIUM (test code = 2231) 139 MEQ/L POTASSIUM (test code = 2228) 5.2 MEQ/L CHLORIDE (test code = 2215) 96 MEQ/L CARBON DIOXIDE (test code = 23 MEQ/L 2206) CALCIUM (test code = 2209) 9.4 MG/DL PROTEIN, TOTAL (test code = 8.0 G/DL 9) ALBUMIN (test code = 2201) 5.1 G/DL CALC GLOBULIN (test code = 2.9 G/DL 2240) CALC A/G RATIO (test code = 1.8 RATIO 2234) BILIRUBIN, TOTAL (test code = 0.5 MG/DL 2207) ALKALINE PHOSPHATASE (test 75 U/L code = 2204) AST (test code = 2218) 180 U/L ALT (test code = 2219) 60 U/L COMPREHENSIVE METABOLIC [id number] 00:00:00 Test Item Value Reference Range Interpretation Comments GLUCOSE (test code = 2217) 79 MG/DL BUN (test code = 2208) 6 MG/DL CREATININE (test code = 2214) 0.57 MG/DL eGFR AMER. (test code 128 ML/MIN/1.73 = 75110) eGFR NON- AMER. (test 110 ML/MIN/1.73 code = 93788) CALC BUN/CREAT (test code = 11 RATIO 2235) SODIUM (test code = 2231) 139 MEQ/L POTASSIUM (test code = 2228) 5.2 MEQ/L CHLORIDE (test code = 2215) 96 MEQ/L CARBON DIOXIDE (test code = 23 MEQ/L 2206) CALCIUM (test code = 2209) 9.4 MG/DL PROTEIN, TOTAL (test code = 8.0 G/DL 222) ALBUMIN (test code = 2201) 5.1 G/DL CALC GLOBULIN (test code = 2.9 G/DL 2240) CALC A/G RATIO (test code = 1.8 RATIO 2234) BILIRUBIN, TOTAL (test code = 0.5 MG/DL 2206) ALKALINE PHOSPHATASE (test 75 U/L code = 2204) AST (test code = 2218) 180 U/L ALT (test code = 2219) 60 U/L COMPREHENSIVE METABOLIC [id number] 00:00:00 Test Item Value Reference Range Interpretation Comments GLUCOSE (test code = 2217) 79 MG/DL BUN (test code = 2208) 6 MG/DL CREATININE (test code = 2214) 0.57 MG/DL eGFR AMER. (test code 128 ML/MIN/1.73 = 37539) eGFR NON- AMER. (test 110 ML/MIN/1.73 code = 42241) CALC BUN/CREAT (test code = 11 RATIO 2235) SODIUM (test code = 2231) 139 MEQ/L POTASSIUM (test code = 2228) 5.2 MEQ/L CHLORIDE (test code = 2215) 96 MEQ/L CARBON DIOXIDE (test code = 23 MEQ/L 2206) CALCIUM (test code = 2209) 9.4 MG/DL PROTEIN, TOTAL (test code = 8.0 G/DL 2228) ALBUMIN (test code = 2201) 5.1 G/DL CALC GLOBULIN (test code = 2.9 G/DL 2240) CALC A/G RATIO (test code = 1.8 RATIO 2234) BILIRUBIN, TOTAL (test code = 0.5 MG/DL 2206) ALKALINE PHOSPHATASE (test 75 U/L code = 2204) AST (test code = 2218) 180 U/L ALT (test code = 2219) 60 U/L COMPREHENSIVE METABOLIC [id number] 00:00:00 Test Item Value Reference Range Interpretation Comments GLUCOSE (test code = 2217) 85 MG/DL BUN (test code = 2208) 8 MG/DL CREATININE (test code = 2214) 0.58 MG/DL eGFR AMER. (test code 127 ML/MIN/1.73 = 04903) eGFR NON- AMER. (test 110 ML/MIN/1.73 code = 71369) CALC BUN/CREAT (test code = 14 RATIO 2235) SODIUM (test code = 2231) 136 MEQ/L POTASSIUM (test code = 2228) 3.7 MEQ/L CHLORIDE (test code = 2215) 98 MEQ/L CARBON DIOXIDE (test code = 24 MEQ/L 220) CALCIUM (test code = 2209) 9.5 MG/DL PROTEIN, TOTAL (test code = 7.1 G/DL 2228) ALBUMIN (test code = 2201) 4.6 G/DL CALC GLOBULIN (test code = 2.5 G/DL 2240) CALC A/G RATIO (test code = 1.8 RATIO 2234) BILIRUBIN, TOTAL (test code = 0.5 MG/DL 2206) ALKALINE PHOSPHATASE (test 65 U/L code = 2204) AST (test code = 2218) 85 U/L ALT (test code = 2219) 25 U/L COMPREHENSIVE METABOLIC [id number] 00:00:00 Test Item Value Reference Range Interpretation Comments GLUCOSE (test code = 2217) 85 MG/DL BUN (test code = 2208) 8 MG/DL CREATININE (test code = 2214) 0.58 MG/DL eGFR AMER. (test code 127 ML/MIN/1.73 = 35556) eGFR NON- AMER. (test 110 ML/MIN/1.73 code = 49378) CALC BUN/CREAT (test code = 14 RATIO 2235) SODIUM (test code = 2231) 136 MEQ/L POTASSIUM (test code = 2228) 3.7 MEQ/L CHLORIDE (test code = 2215) 98 MEQ/L CARBON DIOXIDE (test code = 24 MEQ/L 2206) CALCIUM (test code = 2209) 9.5 MG/DL PROTEIN, TOTAL (test code = 7.1 G/DL 2228) ALBUMIN (test code = 2201) 4.6 G/DL CALC GLOBULIN (test code = 2.5 G/DL 2240) CALC A/G RATIO (test code = 1.8 RATIO 2234) BILIRUBIN, TOTAL (test code = 0.5 MG/DL 220) ALKALINE PHOSPHATASE (test 65 U/L code = 2204) AST (test code = 2218) 85 U/L ALT (test code = 2219) 25 U/L COMPREHENSIVE METABOLIC [id number] 00:00:00 Test Item Value Reference Range Interpretation Comments GLUCOSE (test code = 2217) 85 MG/DL BUN (test code = 2208) 8 MG/DL CREATININE (test code = 2214) 0.58 MG/DL eGFR AMER. (test code 127 ML/MIN/1.73 = 70151) eGFR NON- AMER. (test 110 ML/MIN/1.73 code = 20527) CALC BUN/CREAT (test code = 14 RATIO 2235) SODIUM (test code = 2231) 136 MEQ/L POTASSIUM (test code = 2228) 3.7 MEQ/L CHLORIDE (test code = 2215) 98 MEQ/L CARBON DIOXIDE (test code = 24 MEQ/L 2205) CALCIUM (test code = 2209) 9.5 MG/DL PROTEIN, TOTAL (test code = 7.1 G/DL 2228) ALBUMIN (test code = 2201) 4.6 G/DL CALC GLOBULIN (test code = 2.5 G/DL 2240) CALC A/G RATIO (test code = 1.8 RATIO 2234) BILIRUBIN, TOTAL (test code = 0.5 MG/DL 7) ALKALINE PHOSPHATASE (test 65 U/L code = 2204) AST (test code = 2218) 85 U/L ALT (test code = 2219) 25 U/L COMPREHENSIVE METABOLIC [id number] 00:00:00 Test Item Value Reference Range Interpretation Comments GLUCOSE (test code = 2217) 85 MG/DL BUN (test code = 2208) 8 MG/DL CREATININE (test code = 2214) 0.58 MG/DL eGFR AMER. (test code 127 ML/MIN/1.73 = 88156) eGFR NON- AMER. (test 110 ML/MIN/1.73 code = 20755) CALC BUN/CREAT (test code = 14 RATIO 2235) SODIUM (test code = 2231) 136 MEQ/L POTASSIUM (test code = 2228) 3.7 MEQ/L CHLORIDE (test code = 2215) 98 MEQ/L CARBON DIOXIDE (test code = 24 MEQ/L 2205) CALCIUM (test code = 2209) 9.5 MG/DL PROTEIN, TOTAL (test code = 7.1 G/DL 222) ALBUMIN (test code = 2201) 4.6 G/DL CALC GLOBULIN (test code = 2.5 G/DL 2240) CALC A/G RATIO (test code = 1.8 RATIO 2234) BILIRUBIN, TOTAL (test code = 0.5 MG/DL 2206) ALKALINE PHOSPHATASE (test 65 U/L code = 2204) AST (test code = 2218) 85 U/L ALT (test code = 2219) 25 U/L COMPREHENSIVE METABOLIC [id number] 00:00:00 Test Item Value Reference Range Interpretation Comments GLUCOSE (test code = 2217) 85 MG/DL BUN (test code = 2208) 8 MG/DL CREATININE (test code = 2214) 0.58 MG/DL eGFR AMER. (test code 127 ML/MIN/1.73 = 04279) eGFR NON- AMER. (test 110 ML/MIN/1.73 code = 47995) CALC BUN/CREAT (test code = 14 RATIO 2235) SODIUM (test code = 2231) 136 MEQ/L POTASSIUM (test code = 2228) 3.7 MEQ/L CHLORIDE (test code = 2215) 98 MEQ/L CARBON DIOXIDE (test code = 24 MEQ/L 2205) CALCIUM (test code = 2209) 9.5 MG/DL PROTEIN, TOTAL (test code = 7.1 G/DL 2228) ALBUMIN (test code = 2201) 4.6 G/DL CALC GLOBULIN (test code = 2.5 G/DL 2240) CALC A/G RATIO (test code = 1.8 RATIO 2234) BILIRUBIN, TOTAL (test code = 0.5 MG/DL 2206) ALKALINE PHOSPHATASE (test 65 U/L code = 2204) AST (test code = 2218) 85 U/L ALT (test code = 2219) 25 U/L COMPREHENSIVE METABOLIC [id number] 00:00:00 Test Item Value Reference Range Interpretation Comments GLUCOSE (test code = 2217) 85 MG/DL BUN (test code = 2208) 8 MG/DL CREATININE (test code = 2214) 0.58 MG/DL eGFR AMER. (test code 127 ML/MIN/1.73 = 29556) eGFR NON- AMER. (test 110 ML/MIN/1.73 code = 11818) CALC BUN/CREAT (test code = 14 RATIO 2235) SODIUM (test code = 2231) 136 MEQ/L POTASSIUM (test code = 2228) 3.7 MEQ/L CHLORIDE (test code = 2215) 98 MEQ/L CARBON DIOXIDE (test code = 24 MEQ/L 2205) CALCIUM (test code = 2209) 9.5 MG/DL PROTEIN, TOTAL (test code = 7.1 G/DL 2228) ALBUMIN (test code = 2201) 4.6 G/DL CALC GLOBULIN (test code = 2.5 G/DL 2240) CALC A/G RATIO (test code = 1.8 RATIO 2234) BILIRUBIN, TOTAL (test code = 0.5 MG/DL 2206) ALKALINE PHOSPHATASE (test 65 U/L code = 2204) AST (test code = 2218) 85 U/L ALT (test code = 2219) 25 U/L COMPREHENSIVE METABOLIC [id number] 00:00:00 Test Item Value Reference Range Interpretation Comments GLUCOSE (test code = 2217) 85 MG/DL BUN (test code = 2208) 8 MG/DL CREATININE (test code = 2214) 0.58 MG/DL eGFR AMER. (test code 127 ML/MIN/1.73 = 92837) eGFR NON- AMER. (test 110 ML/MIN/1.73 code = 76810) CALC BUN/CREAT (test code = 14 RATIO 2235) SODIUM (test code = 2231) 136 MEQ/L POTASSIUM (test code = 2228) 3.7 MEQ/L CHLORIDE (test code = 2215) 98 MEQ/L CARBON DIOXIDE (test code = 24 MEQ/L 2205) CALCIUM (test code = 2209) 9.5 MG/DL PROTEIN, TOTAL (test code = 7.1 G/DL 2228) ALBUMIN (test code = 2201) 4.6 G/DL CALC GLOBULIN (test code = 2.5 G/DL 2240) CALC A/G RATIO (test code = 1.8 RATIO 2234) BILIRUBIN, TOTAL (test code = 0.5 MG/DL 2206) ALKALINE PHOSPHATASE (test 65 U/L code = 2204) AST (test code = 2218) 85 U/L ALT (test code = 2219) 25 U/L
[2022-09-30 09:23] LABS: Specific Gravity 1.024 (1.005-1.030)
[2022-09-30 09:24] LABS: Absolute Lymphocytes (CBC) 2.1 K/uL (0.7-4.9); Lymphocytes % 33.1 % (15.3-44.8); MPV 8.4 fL (7.6-11.3); RBC Red Blood Cell Count 3.96 M/uL (3.86-4.86)
[2022-09-30 09:27] LABS: Specific Gravity 1.024 (1.005-1.030); Urine Bacteria 20-50 /HPF (<20); Urine Bilirubin NEGATIVE (Negative); Urine Blood Negative (Negative); Urine Clarity Turbid (Clear); Urine Color Yellow (Yellow); Urine Glucose NEGATIVE (Negative); Urine Mucus Slight /HPF (None Seen); Urine Protein 1+ (Negative); Urine Urobilinogen Normal (Normal)
[2022-09-30] MEDS ORDERED: ONDANSETRON 4 MG/2 ML VIAL ONE (09:27)
[2022-09-30] MEDS ORDERED: KETOROLAC 30 MG/ML INJ ONE (09:27)
[2022-09-30] MEDS ORDERED: NA CHLORIDE 0.9% 1,000 ML ONE (09:27)
[2022-09-30 09:33] LABS: Barbiturates NEGATIVE (NEGATIVE); Benzodiazepines NEGATIVE (NEGATIVE); Cocaine NEGATIVE (NEGATIVE); METHAMPHETAM NEGATIVE (NEGATIVE); Methadone NEGATIVE (NEGATIVE); Opiates NEGATIVE (NEGATIVE); Phencyclidine NEGATIVE (NEGATIVE); THC Cannibis NEGATIVE (NEGATIVE)
[2022-09-30 09:41] LABS: Albumin 4.5 g/dL (3.4-5.0); Bilirubin Total 0.7 mg/dL (0.2-1.0); Potassium 3.9 mEq/L (3.5-5.1); Protein, Total 8.3 g/dL (6.4-8.2)
[2022-09-30 09:49] LABS: Blood Morphology Comment NOTED (NOT SEEN); Macrocytosis 1+; Platelet Estimate ADEQ; White Blood Cell Scan OK (OK)
--- NOTE | 2022-09-30 10:29 | EDPHYS ---
Physician Documentation [facility] Name: Jennifer Musa Age: 47 yrs Sex: Female : 1975 Arrival Date: 09/30/2022 Time: 08:56 Bed 16 Private MD: ED Physician Nirmal Antony HPI: 09/30 09:13 This 47 yrs old Female presents to ER via Wheelchair with complaints of bs3 Weakness, Nausea, Flank Pain. 09:13 Pt notes that she has not felt well for the last several days, she was taking a bs3 supplement called Cathy and then tried to cut back on it and developed these symptoms. No chest pain or sob, she does feel anxious, tired and decreased oral intake, although is drinking water. No urinary symptoms, fever, chills or anything else bothering her. 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 - Social history:: Smoking status: Patient reports the use of cigarette tobacco products, smokes one-half pack cigarettes per day. ROS: 09:13 Constitutional: Negative for fever, chills bs3 09:13 All other systems are negative. Exam: 09:13 Constitutional: pt appears anxious, tired but in nad. Head/Face: Normocephalic, bs3 atraumatic. Eyes: Pupils equal round and reactive to light, extra-ocular motions intact. Lids and lashes normal. ENT: mmm, no posterior phyarngeal erythema Neck: Trachea midline, no thyromegaly, no neck stiffness Chest/axilla: Normal chest wall appearance and motion. Nontender with no deformity. No lesions are appreciated. Cardiovascular: Regular rate and rhythm with a normal S1 and S2. symmetric pulses in upper extremities Respiratory: Lungs have equal breath sounds bilaterally, clear to auscultation, no respiratory distress Abdomen/GI: Soft, non-tender, no rebound or guarding Skin: Warm, dry with normal turgor. Normal color with no rashes, no lesions, and no evidence of cellulitis. MS/ Extremity: Pulses equal, no cyanosis. Neurovascular intact. Full, normal range of motion. Neuro: Awake and alert, GCS 15, oriented to person, place, time, and situation. Cranial nerves II-XII grossly intact. Motor strength 5/5 in all extremities. Sensory grossly intact. Psych: Awake, alert, with orientation to person, place and time. Behavior, mood, and affect are within normal limits. Vital Signs: 09:00 BP 157 / 107; Pulse 110; Resp 18; Temp 97.2; Pulse Ox 100% on R/A; iw 09:45 BP 144 / 89; Pulse 96; Pulse Ox 100% on R/A; ap3 MDM: 09:04 Patient medically screened. bs3 09:13 Data reviewed: vital signs, nurses notes. Consideration of Admission/Observation bs3 Escalation of care including admission/observation considered. Test considered but Not performed: CT: . Care significantly affected by the following Social Determinants of Health: Poor access to healthcare and/or lack of insurance. ED course: will eval for dehdyration, possible toxic side effect/withdrawal, her abd exam is benign, but will check labs to eval lft/lipase, will check urine, uda. likely mild withdrawal from kratom. . 10:08 ED course: labs notable for elevated lft, improved from prior. . bs3 10:26 ED course: ua consistent with uti, pt reassessed, feeling better.. bs3 09/30 09:10 Order name: CBC with Diff; Complete Time: 10:04 3 09/30 09:10 Order name: Comprehensive Metabolic Panel; Complete Time: 10:04 bs3 09/30 09:10 Order name: Lipase; Complete Time: 10:04 3 09/30 09:10 Order name: Urine Drug Screen; Complete Time: 10:04 bs3 09/30 09:10 Order name: Urinalysis w/ reflexes; Complete Time: 10:04 bs3 09/30 09:10 Order name: Test, Urine; Complete Time: 10:04 bs3 09/30 09:31 Order name: Urine Culture EDSC 09/30 09:33 Order name: CBC Smear Scan; Complete Time: 10:04 EDSC 09/30 09:10 Order name: EKG; Complete Time: 09:11 bs3 09/30 09:10 Order name: IV Saline Lock; Complete Time: 09:30 bs3 09/30 09:10 Order name: Labs collected and sent; Complete Time: bs3 09/30 09:10 Order name: O2 Per Protocol; Complete Time: bs3 09/30 09:10 Order name: O2 Sat Monitoring; Complete Time: bs3 Administered Medications: : Drug: NS 0.9% IV 1000 ml Route: IV; Rate: 1000 ml; Site: left antecubital; ap3 10:38 Follow up: IV Status: Completed infusion ap3 09:31 Drug: Ketorolac IVP 15 mg Route: IVP; Site: left antecubital; ap3 10:38 Follow up: Response: No adverse reaction; Pain is decreased ap3 09:31 Drug: Ondansetron IVP 8 mg Route: IVP; Site: left antecubital; ap3 10:38 Follow up: Response: No adverse reaction ap3 10:38 Drug: Rocephin IV 1 grams Route: IV; Rate: bolus; Site: left antecubital; ap3 10:54 Follow up: IV Status: Completed infusion ap3 Disposition Summary: 09/30/22 10:29 Discharge Ordered Location: Home bs3 Problem: new bs3 Symptoms: have improved bs3 Condition: Stable bs3 Diagnosis - UTI/ Urinary tract infection, site not specified bs3 - Other malaise and fatigue bs3 - Alcohol abuse bs3 Followup: bs3 - With: Private Physician - When: Upon discharge from the Emergency Department - Reason: If symptoms return, Re-evaluation by your physician Discharge Instructions: - Discharge Summary Sheet bs3 - Urinary Tract Infection, Adult bs3 - Nausea and Vomiting, Adult, [id number] bs3 - Alcohol Abuse and Nutrition bs3 Forms: - Work release form ap3 - Medication Reconciliation Form bs3 - Thank You Letter bs3 - Antibiotic Education bs3 - Prescription Opioid Use bs3 Prescriptions: - Cephalexin 500 mg Oral Capsule - take 1 capsule by ORAL route every 12 hours for 7 days; 14 capsule; Refills: 0, bs3 Product Selection Permitted - ondansetron 8 mg Oral tablet,disintegrating - take 1 tablet by ORAL route every 8 hours; 15 tablet; Refills: 0, Product bs3 Selection Permitted Signatures: Dispatcher [employer] Saba Smith RN RN iw Prokisch, Amanda, RN RN ap3 Nirmal Antony MD MD bs3 Corrections: (The following items were deleted from the chart) : 09:07 PMHx: hypertension-no medications; iw 09:21 09:13 ED course: will eval for dehdyration, possible toxic side effect/withdrawal, her bs3 abd exam is benign, but will check labs to eval lft/lipase, will check urine, uda. . bs3
--- NOTE | 2022-09-30 10:29 | ER ---
Nurse's Notes [facility] Name: Jennifer Musa Age: 47 yrs Sex: Female : 1975 Arrival Date: 09/30/2022 Time: 08:56 Bed 16 Private MD: Diagnosis: UTI/ Urinary tract infection, site not specified;Other malaise and fatigue;Alcohol abuse Presentation: 09/30 09:00 Chief complaint: Patient states: disoriented, pain under right ribs, hard to take a iw deep breath, +nausea , has been taking Kratom and she drinks wine daily , she feels shaky , feels weak, stopped Kratom five days ago but took two capsules yesterday . her symptoms started yesterday. Coronavirus screen: At this time, the client does not indicate any symptoms associated with coronavirus-19. Ebola Screen: Patient negative for fever greater than or equal to 101.5 degrees Fahrenheit, and additional compatible Ebola Virus Disease symptoms Patient denies exposure to infectious person. Patient denies travel to an Ebola-affected area in the 21 days before illness onset. No symptoms or risks identified at this time. 09:00 Method Of Arrival: Wheelchair iw 09:05 Initial Sepsis Screen: Does the patient meet any 2 criteria? No. Patient's initial iw sepsis screen is negative. Does the patient have a suspected source of infection? No. Patient's initial sepsis screen is negative. Risk Assessment: Do you want to hurt yourself or someone else? Patient reports no desire to harm self or others. 09:05 Acuity: DAI 3 iw 10:53 Onset of symptoms was August 30, 2022. ap3 Triage Assessment: 10:52 General: Appears uncomfortable, Behavior is calm, cooperative, appropriate for age. ap3 Pain: Denies pain. Neuro: Level of Consciousness is awake, alert, obeys commands, Oriented to person, place, time, situation, Moves all extremities. Gait is steady, Speech is normal. Cardiovascular: Patient's skin is warm and dry. Respiratory: Airway is patent Respiratory effort is even, unlabored, Respiratory pattern is regular, symmetrical. GI: Reports nausea. 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 - Social history:: Smoking status: Patient reports the use of cigarette tobacco products, smokes one-half pack cigarettes per day. Screenin:52 [facility] ED Fall Risk Assessment (Adult) History of falling in the last 3 months, ap3 including since admission No falls in past 3 months (0 pts). Abuse screen: Denies threats or abuse. Nutritional screening: No deficits noted. Tuberculosis screening: No symptoms or risk factors identified. Vital Signs: 09:00 BP 157 / 107; Pulse 110; Resp 18; Temp 97.2; Pulse Ox 100% on R/A; iw 09:45 BP 144 / 89; Pulse 96; Pulse Ox 100% on R/A; ap3 ED Course: 08:57 Patient arrived in ED. rg4 09:04 Nirmal Antony MD is Attending Physician. bs3 09:05 Triage completed. iw 09:08 Arm band placed on. iw 09:17 Urine Drug Screen Sent. iw 09:17 Urinalysis w/ reflexes Sent. iw 09:17 Test, Urine Sent. iw 09:25 EKG done, by ED staff. tm3 09:30 Salma Luna, SHIRIN is Primary Nurse. ap3 09:30 Initial lab(s) drawn, by me, sent to lab. Inserted saline lock: 20 gauge in left ap3 antecubital area, using aseptic technique. Blood collected. 10:53 Patient has correct armband on for positive identification. Bed in low position. Call ap3 light in reach. Side rails up X2. Adult w/ patient. supervisor bleach plant on. Pulse ox on. NIBP on. Door closed. Noise minimized. 11:02 No provider procedures requiring assistance completed. IV discontinued, intact, ap3 bleeding controlled, No redness/swelling at site. Pressure dressing applied. Administered Medications: :31 Drug: NS 0.9% IV 1000 ml Route: IV; Rate: 1000 ml; Site: left antecubital; ap3 10:38 Follow up: IV Status: Completed infusion ap3 09:31 Drug: Ketorolac IVP 15 mg Route: IVP; Site: left antecubital; ap3 10:38 Follow up: Response: No adverse reaction; Pain is decreased ap3 09:31 Drug: Ondansetron IVP 8 mg Route: IVP; Site: left antecubital; ap3 10:38 Follow up: Response: No adverse reaction ap3 10:38 Drug: Rocephin IV 1 grams Route: IV; Rate: bolus; Site: left antecubital; ap3 10:54 Follow up: IV Status: Completed infusion ap3 Medication: 10:53 VIS not applicable for this client. ap3 Outcome: 10:29 Discharge ordered by . bs3 11:02 Discharged to home ambulatory, with family. ap3 11:02 Condition: good 11:02 Discharge instructions given to patient, family, Instructed on discharge instructions, follow up and referral plans. medication usage, Demonstrated understanding of instructions, follow-up care, medications, Prescriptions given X 2. 11:03 Patient left the ED. ap3 Addendum: 10/03/2022 09:39 Addendum: Culture Results: Positive urine culture. Phone call Attempt #1 left . k b3 Signatures: Sharan Tamayo tm3 Saba Nye, SHIRIN RN iw Yodit Ayala rg4 Salma Luna RN RN ap3 Nayeli Knutson, SHIRIN RN kb3 Nirmal Antony MD MD bs3 Corrections: (The following items were deleted from the chart) 09/30 09:08 09:07 PMHx: hypertension-no medications; iw 09:31 09:30 Inserted saline lock: 20 gauge in right antecubital area, using aseptic ap3 technique. Blood collected. ap3
[2022-09-30 11:32] VITALS: TEMP 97.2; O2SAT 100
[2022-09-30 11:33] VITALS: BP 144/89
--- NOTE | 2022-10-01 07:12 | EKG ---
Test Date: 2022-09-30 Test Time: 09:23:59 Lan Support Specialist: TM MEASUREMENT RESULTS: Intervals: Rate: 86 PA: 160 QRSD: 80 QT: 392 QTc: 469 [place]: P: 74 PA: 160 QRS: 83 T: 61 INTERPRETIVE STATEMENTS: Normal sinus rhythm Low voltage QRS Borderline ECG Compared to ECG 02/08/2020 12:49:51 Low QRS voltage now present Electronically Signed On 10-01-22 07:09:38 CDT by Sage Andrews
== END 2022-09-30 11:03 | disposition home or self-care (01) ==
LOC: ER 08:56 → EDSEX 08:56 → ER 11:03
DX: N39.0 Urinary tract infection, site not specified (principal); R53.81 Other malaise; F10.10 Alcohol abuse, uncomplicated; I10 Essential (primary) hypertension; F17.210 Nicotine dependence, cigarettes, uncomplicated; Z88.6 Allergy status to analgesic agent
CPT/HCPCS: 36415; 80053; 80307; 81001; 81025; 83690; 85025; 87077; 87086; 87088; 87186; 93005; 96361; 96365; 96375; 99285; J2405; J7030